=== PATIENT | female | born 1980 | race Caucasian/White ===

== ENCOUNTER 2016-04-15 06:32 | Day surgery (SDC) | payer OTHER ==
[~2016-04-15] VITALS: Ht 172.7 cm; Wt 53.8 kg
[2016-04-15] VITALS (8 sets, daily range): BP systolic 101–114; BP diastolic 64–73; PULSE 72–97; RESP 9–18; O2SAT 97–100
[~2016-04-15 06:32] MED LIST: ALBU8.5H2 INHALATION; AMIT10TA6 PO; AMPH15TA PO; BUPR150T8 PO; CeFAZolin 2 Gm/50 mL D5W IV Premix IV ONE; Lactated Ringer's 1,000 ML IV SCH; NORG1TAB7 PO
[2016-04-15] MEDS ORDERED: MetoCLOpramide 5 mg/mL 2 mL Inj ONE (06:33)
[2016-04-15] MEDS ORDERED: Dexamethasone 4 mg/mL Inj ONE (06:33)
[2016-04-15] MEDS ORDERED: Propofol 10,000 mCg/mL 20 mL Inj ONE (06:33)
[2016-04-15] MEDS ORDERED: Phenylephrine/NS 100 mCg/mL 10 mL Syringe IVPUSH ONE (06:33)
[2016-04-15] MEDS ORDERED: fentaNYL-PF 50 mCg/mL 2 mL Inj ONE (06:33)
[2016-04-15] MEDS ORDERED: Vasopressin 20 Unit/mL Inj ONE (06:33)
[2016-04-15] MEDS ORDERED: Ondansetron 2 mg/mL 2 mL Inj ONE (06:33)
[2016-04-15] MEDS ORDERED: Lactated Ringer's 1,000 ML IV ONE (07:21)
[2016-04-15 07:32] LABS: Mean Corpuscular Hemoglobin 28.2 pg (27.0-35.0); Mean Corpuscular Volume 87.1 fL (81-100)
[2016-04-15] MEDS ORDERED: Lactated Ringer's 500 ML IV PRN (08:19)
[2016-04-15] MEDS ORDERED: Lactated Ringer's 1,000 ML IV SCH (08:19)
--- NOTE | 2016-04-15 08:19 | PCM.HPANE ---
Patient Data Surgeon Admitting Provider: Attending Provider:Mona Martinez MD Primary Care Physician:Suzette Sheikh MD Other Provider: Reason for Visit Interstitial Cystitis Ht/WT & BMI Height (Feet): 5 Height (Inches): 8.00 Weight (Kilograms): 53.800 Body Mass Index 17.00 Allergies Coded Allergies: Sulfa (Sulfonamide Antibiotics) (Verified Allergy, Intermediate, NAUSEA/ VOMITING, 04/14/16) Diabetes History Hx Diabetes?: No MRSA MRSA: No Medications Home Meds Incl Beta Simone: No Reported Medications Albuterol HFA (Proair HFA)8.5 Gm Hfa.aer.ad2 Puffs INHALATION Q4H #1 INHALER 04/14/16 Dextroamphetamine/Amphetamine (Adderall)15 Mg Dogkyp70 Mg PO DAILY Ref 0 04/14/16 Bupropion ER (Wellbutrin SR)150 Mg Tablet.er150 Mg PO BID Ref 0 04/14/16 Norgestimate-Ethinyl Estradiol (Ortho Tri-Cyclen)1 Each Tablet1 Each PO DAILY 04/14/16 Amitriptyline 10 Mg Oqlqrv55 Mg PO HS Ref 0 04/14/16 History History of ENT Problems?: No Hx of Respiratory Problem?: Yes Respiratory History: Positive for:: Asthma Use of Inhalers / NEBS (WILL BRING) Hx Neurologic Problems?: No Hx of GI Problems?: No Hx of Problems?: No Genitourinary History: Positive for:: Urinary Tract Infection Female Hx: Denies:: Currently (URINE PREG NEG) Problems with Breasts? Hx Musculoskeletal Problems?: No Hx of Psycho/Social Problems?: Yes (ADHD) Psycho Social History: Positive for:: Hx Depression Hx Surgeries?: Yes (CYSTO) Hx Any Other Health Problems?: No Other History: Denies:: Cancer History Blood Transfusions: Positive for:: Accept Blood Products? Denies:: Blood Transfuse Reaction Blood Transfusions Hx Diabetes: No Hx Alcohol Use: Yes (RARELY)Hx Substance Use: Yes (MARIJUANA OCCASIONALLY) Stop/Bang S-Snoring: Do You Snore Loudly: No T-Tired: feel tired, fatigued: No O-Obsered: Observed not breath: No P-Blood Pressure: treated: No B- Body Mass Index > 35 kg/m2: No A- Age over 50: No N- Neck Large Circumference: No G- Gender Male: No BRITTA Total Score: 0 Risk Assessment Category Category 1A: Patient has history of documented sleep apnea, and HAS NOT received any narcotic, sedative or anesthesia administration during this stay. Category 1B: Patient has history of documented sleep apnea, and HAS received any narcotic , sedative or anesthesia administration during this stay Category 2: Patient has SUSPECTED Obstructive Sleep Apnea, and HAS received any narcotic , sedative or anesthesia administration during this stay. Category 3: Patient has SUSPECTED Obstructive Sleep Apnea and HAS NOT received narcotic, sedative or anesthesia administration during this stay. Category 4: Outpatient in Procedural Areas with known sleep apnea or who screen positive for High Risk via the STOP/BANG questionnaire. Exam Exam Vital Signs Vital Signs Date Time Temp Pulse Resp B/P Pulse Ox O2 Delivery O2 Flow Rate FiO2 04/15/16 06:53 36.1 80 17 112/73 100 Room Air General Appearance: Alert, Oriented X3 HEENT/AIRWAY: MP 2, Neck Movement (FROM), Mouth Opening (3 FBMO) Lungs: Clear to Auscultation, Normal Air Movement Heart: Exam Unremarkable, Regular Rate/Rhythm, No Murmurs/Rubs/Gallops Meds/Labs/Diagnostics Admission Meds Current Medications Lactated Ringer's (Lr) 1,000 ml @ ud STK-MED ONCE IV Last administered on 04/15t 07:21; Start 04/15/16 at 07:21; Stop 04/15/16 at 07:22; Status DC Labs Test 04/15/16 07:18 White Blood Count 4.1th/mm3 (3.8-10.1) Red Blood Count 4.33mil/mm3 (3.90-5.20) Hemoglobin 12.2g/dL (12.0-15.6) Hematocrit 37.7% (35.0-46.0) Mean Corpuscular Volume 87.1fL (81-100) Mean Corpuscular Hemoglobin 28.2pg (27.0-35.0) Mean Corpuscular Hemoglobin Concent 32.4% (32.0-37.0) Red Cell Distribution Width 13.9% (12.3-15.4) Platelet Count 218bil/L (150-400) Plan Impression Patient chart reviewed, patient interviewed and anesthestic plan with risks, benefits, and alternatives discussed, and informed consent obtained. NPO Status: 04/14@1999, WATER @2200 ASA Physical Status: ASA2 Mod Systemic Disease Anesthetic Plan: GA Bene/Risks/Altern/Consents: Yes HP Complete Prior to Induction: Yes Freeman Christie MD Apr 15, 2016 08:19
[2016-04-15] MEDS ORDERED: hydrALAZINE 20 mg/mL Inj IVPUSH PRN (08:20)
[2016-04-15] MEDS ORDERED: Phenylephrine 10,000 mCg/mL Inj IVPUSH PRN (08:20)
[2016-04-15] MEDS ORDERED: Labetalol 5 mg/mL 4 mL Inj IV PRN (08:20)
[2016-04-15] MEDS ORDERED: Belladonna Alk-Opium 60 mg Rectal Suppository RECTAL ONE ×2 (08:20→08:42)
[2016-04-15] MEDS ORDERED: fentaNYL-PF 50 mCg/mL 2 mL Inj IVPUSH PRN (08:20)
[2016-04-15] MEDS ORDERED: MetoCLOpramide 5 mg/mL 2 mL Inj IVPUSH PRN (08:20)
[2016-04-15] MEDS ORDERED: Atropine 0.4 mg/mL Inj IVPUSH PRN (08:20)
[2016-04-15] MEDS ORDERED: EPHEDrine Sulfate 50 mg/mL Inj IVPUSH PRN (08:20)
[2016-04-15] MEDS ORDERED: Ondansetron 2 mg/mL 2 mL Inj IVPUSH PRN (08:20)
[2016-04-15] MEDS ORDERED: Lidocaine PF 1% 30 mL Inj INFILTRATE ONE (08:46)
[2016-04-15] MEDS ORDERED: Bupivacaine-MPF 0.5% 30 mL Inj BLADDER ONE (08:47)
[2016-04-15] MEDS ORDERED: Lidocaine Topical 2% 30 mL Jelly TOPICAL ONE (08:47)
--- NOTE | 2016-04-15 09:40 | PCM.ANEP1 ---
Post Anesthesia Phase 1 PACU Phase 1 Assessment Vital Signs Vital Signs Date Time Temp Pulse Resp B/P Pulse Ox O2 Delivery O2 Flow Rate FiO2 04/15/16 09:20 36.3 78 16 108/65 98 Room Air 04/15/16 09:15 74 18 107/68 98 Room Air 04/15/16 09:10 79 9 108/64 99 Room Air 04/15/16 09:05 96 13 111/66 98 Simple Mask 8 04/15/16 09:04 36.2 97 15 101/67 97 Simple Mask 8 04/15/16 06:53 36.1 80 17 112/73 100 Room Air Anesthetic Administered: GA Level of Alertness: Awake, talking GUEVARA's with Equal Strength: Yes Pain: No Nausea or Vomiting: No Oxygen Delivery: Simple Mask Lungs: Clear to Auscultation, Normal Air Movement Dermatome Level: Full Sensation Freeman Christie MD Apr 15, 2016 09:40
--- NOTE | 2016-04-15 09:40 | PCM.ANEP2 ---
Post Anesthesia Evaluation ASA/CMS Post Anesthesia VS in Patient's Normal Range?: Yes Resp Stable; Airway Patent?: Yes CV Function & Hydration Stable: Yes Mental Status Recovered?: Yes Pain control Satisfactory?: Yes N/V Control Satisfactory?: Yes Freeman Christie MD Apr 15, 2016 09:40
--- NOTE | 2016-04-15 11:58 | OP ---
[address] [address] OPERATIVE REPORT PATIENT: BRYANT LUU : 1980 MR#: [id number] ADMIT: 04/15/2016 JOB ID: [id number] DATE OF SURGERY: 04/15/2016 SURGEON: Mona Martinez MD PREOPERATIVE DIAGNOSIS(ES): Interstitial cystitis. POSTOPERATIVE DIAGNOSIS(ES): PROCEDURE: Cystoscopy and hydrodistention. ANESTHESIA: General anesthetic, Dr. Christie. DESCRIPTION OF PROCEDURE: Under general anesthetic, the patient was placed in lithotomy position. Genitalia prepped and draped in a sterile manner. A 25-Egyptian cystoscope was introduced through a snug urethra. Ureteral orifices were normal in position and appearance. The remainder of the bladder showed some patchy paleness but was otherwise unremarkable. Hydrodistention was commenced at a pressure of 60 cm of water and increased incrementally to 120 cm of water. Maximum pressure was held for 5 minutes. Maximum hydrodistention achieved 1300 cc with a marked petechial reaction throughout the bladder. A mixture of Marcaine, Xylocaine, and Xylocaine jelly was then instilled into the bladder and a B and O suppository was given for postoperative analgesia. The patient tolerated the procedure well and left the operating room in good condition.
== END 2016-04-15 23:59 | disposition home or self-care (01) ==
LOC: SAS 06:32
PROVIDERS: ATTEND Urology
DX: N30.10 Interstitial cystitis (chronic) without hematuria (principal); Z87.440 Personal history of urinary (tract) infections; Z79.51 Long term (current) use of inhaled steroids
CPT/HCPCS: 36415; 52260; 85027; J0690; J1100; J2370; J2405; J2765; J7120